=== PATIENT | male | born 1965 | race Caucasian/White ===

== ENCOUNTER 2024-08-07 07:33 | Day surgery (SDC) | payer OTHER ==
[~2024-08-07] VITALS: Ht 172.7 cm; Wt 66.4 kg
[2024-08-07] VITALS (15 sets, daily range): BP systolic 95–123; BP diastolic 61–79
[~2024-08-07 07:33] MED LIST: EUTHYROX50 MCG PO; METOPIRONE PO; NS 500 ML IV SCH; OXYACE5T PO; PRAV20 PO; TAMS.4ER PO; propofoL 20 ML IV ONE
[2024-08-07] MEDS ORDERED: METO25ER (08:11)
[2024-08-07] MEDS ORDERED: Ipratropium/Albuterol SulF 2.5-0.5MG/3 ML Amp INH ONE (08:20)
[2024-08-07] MEDS ORDERED: Midazolam HCl 1MG / ML 2ML Vial ONE (08:50)
--- NOTE | 2024-08-07 08:54 | NUR ---
08/07/24 0854 Ben Barnett CONFIRMED AND REVIEWED H&P, MEDCICATIONS, ALLERGIES, MEDICAL HISTORY, RESPIRATORY HISTORY, VITAL SIGNS, 3-LEAD EKG, CONSENTS, AND PHYSICIAN ORDERS. PATIENT CONFIRMS NPO STATUS AND AGREES WITH SCHEDULED PROCEDURE. MONITOR INTACT WITH CONTINUOUS PULSE OXIMETRY, CAPNOGRAPHY, 3-LEAD EKG, INTERMITTENT BP. SUPPLEMENTAL O2 TO BE TITRATED THROUGHOUT PROCEDURE TO MAINTAIN O2 SATURATION ABOVE 90%. PATIENT DETERMINED TO BE ASA APPROPRIATE FOR PROPOFOL SEDATION PRIOR TO START OF PROCEDURE BY DR. KAY.
--- NOTE | 2024-08-07 09:08 | NUR ---
PATIENT AWAKE AND CONVERSING WITH NURSE, ANSWERS QUESTIONS APPROPRIATELY. NO C/O VERBALIZED. DENIES PAIN. BREATHING RA. GLASSES RETURNED TO PATIENT. BEATRIZ, , AT BEDSIDE AGREES TO DRIVE PATIENT HOME. PATIENT INSTRUCTED NOT TO DRIVE FOR 24 HOURS POST COLONOSCOPY.
--- NOTE | 2024-08-07 09:10 | NUR ---
DR KAY AT BEDSIDE REVIEWING RESULTS AND FOLLOW-UP INSTRUCTIONS WITH PATIENT AND .
--- NOTE | 2024-08-07 09:25 | NUR ---
0915- Discharge instructions reviewed with patient. Patient verbalizes understanding. Copy given to patient to take home. VSS. Gait steady.
== END 2024-08-07 09:22 | disposition home or self-care (01) ==
LOC: ORSCMMR 07:33 → ORD 08:30 → ORSCMMR 08:30
PROVIDERS: Internal Medicine Gastroenterology
PROC: 0DBP8ZX Excision of Rectum, Via Natural or Artificial Opening Endoscopic, Diagnostic (ICD-10-PCS; principal; 2024-08-07 08:30)
DX: Z12.11 Encounter for screening for malignant neoplasm of colon (principal); Z86.0101 Personal history of adenomatous and serrated colon polyps; K62.1 Rectal polyp; E78.00 Pure hypercholesterolemia, unspecified; J44.9 Chronic obstructive pulmonary disease, unspecified; E03.9 Hypothyroidism, unspecified; F17.210 Nicotine dependence, cigarettes, uncomplicated; Z79.899 Other long term (current) drug therapy
CPT/HCPCS: 88305; J2250; J2704; J7040